=== PATIENT | male | born 1970 | race Caucasian/White ===

== ENCOUNTER 2022-05-28 07:31 | Emergency (ER) | payer OTHER ==
[~2022-05-28] VITALS: Ht 167.6 cm; Wt 68.0 kg
[2022-05-28 07:33] VITALS: BP_SYST 129
--- NOTE | 2022-05-28 07:42 | NUR ---
Pt miguel SAMAYOA from [facility]way [facility]. Pt seeking medical clearance to proceed to court in [place]. Pt denies SOB, no neuro deficit, LUCINA, skin intact, aaox4. Pt states history of diabetes blood sugar 334, Pt states ate a big breakfast within past hour. Pt denies NVD, pt denies urinary issues.
--- NOTE | 2022-05-28 07:45 | NUR ---
ER at bedside examining patient.
[2022-05-28] MEDS ORDERED: METF-834 PO (07:48)
--- NOTE | 2022-05-28 08:00 | NUR ---
Patient given written and verbal discharge instructions and verbalizes understanding. ER MD discussed with patient the results and treatment provided. Patient in stable condition. ID arm band removed. Rx of Metformin given. Patient educated on pain management and to follow up with PMD. Opportunity for questions provided and answered. Medication side effect fact sheet provided.
[2022-05-28 08:12] VITALS: BP_SYST 129
== END 2022-05-28 08:00 ==
LOC: SED 07:31
DX: E11.65 Type 2 diabetes mellitus with hyperglycemia (principal); R73.9 Hyperglycemia, unspecified; Z79.899 Other long term (current) drug therapy
CPT/HCPCS: 99283